=== PATIENT | male | born 1980 | race Caucasian/White ===

== ENCOUNTER 2020-06-24 12:45 | Emergency (ER) | payer BC, SELFPAY ==
[2020-06-24 12:50] VITALS: BP 165/90; PULSE 71; RESP 18; TEMP 37.6; O2SAT 99
--- NOTE | 2020-06-24 13:28 | ED.UPPEXIN ---
HPI - Extremity Injury (Upper) General Chief Complaint: Extremity Injury, Upper Stated Complaint: left thumb injury Time Seen by Provider: 06/24/20 13:12 Source: patient and RN notes reviewed Mode of arrival: ambulatory Limitations: no limitations History of Present Illness HPI narrative: Patient presents today complaining of an injury to his left thumb that was sustained yesterday. He hit with. And was worried because there is drainage coming from the underside of his fingernail. He is up-to-date on his tetanus vaccine. He does report some numbness and tingling to the tip of the finger. Currently rates pain 5/10 and has tried no [id number] interventions prior to arrival. He currently declines an x-ray. MD complaint: injury to: finger Related Data Home Medications Medication Instructions Recorded Confirmed bupropion HCl 100 mg PO DAILY 06/24/20 06/24/20 Allergies Allergy/AdvReac Type Severity Reaction Status Date / Time vancomycin Allergy Unknown Confusion Verified 06/24/20 13:12 Review of Systems Review of Systems: Narrative: CONSTITUTIONAL: Denies body aches, fever, chills, or sweats. EYES: Denies visual changes, redness, or discharge. ENT: Denies rhinorrhea, congestion, sore throat, or otalgia. CARDIOVASCULAR: Denies chest pain, palpitations, or edema. RESPIRATORY: Denies cough or dyspnea. GASTROINTESTINAL: Denies abdominal pain, nausea, vomiting, or diarrhea. GENITOURINARY: Denies dysuria or hematuria. SKIN: Denies rash, itching, or wounds. MUSCULOSKELETAL: Denies back pain, or myalgia. + Left thumb injury NEUROLOGIC: Denies headache, numbness, tingling, or weakness. PSYCH: Denies depression or anxiety. PMFSH Comments At time of signature, I have reviewed and agree with nursing past medical, surgical, social and family history unless otherwise noted. Please see nursing chart for further information. There is no relevant family history pertinent to the presenting complaint Exam Narrative: Exam Narrative: GENERAL: Well-appearing, well-nourished, and in no acute distress. HEAD: Normocephalic, atraumatic. EYES: EOMI. No redness or drainage. Conjunctivae normal. ENT: Mucous membranes pink and moist. NECK: Normal AROM. CHEST: No respiratory distress. EXTREMITIES: Left thumb: Patient has a draining subungual hematoma. There does not seem to be any blood collection underneath the nail at this time, but the nail does appear to be from the nailbed for approximately 60% of the nail. There is a contusion at the distal tip of the finger just adjacent to the nail. Some serous crusting at this area. Tenderness at the tip of the finger, but there does not seem to be bony tenderness of the distal phalanx. No signs of infection to include erythema or purulent discharge. Distal sensation is somewhat decreased. Capillary refill normal. Full range of motion intact. SKIN: Warm, dry, no rash. Capillary refill normal. Normal skin turgor. NEURO: No focal deficits. Alert and oriented x3. Gait steady. PSYCH: Normal affect. No signs of depression or anxiety. Course Vital Signs Vital signs: Vital Signs Temperature 99.6 F 06/24/20 12:50 Pulse Rate 71 06/24/20 12:50 Respiratory Rate 18 06/24/20 12:50 Blood Pressure 165/90 H 06/24/20 12:50 Pulse Oximetry 99 06/24/20 12:50 Temperature 99.6 F 06/24/20 12:50 Pulse Rate 71 06/24/20 12:50 Respiratory Rate 18 06/24/20 12:50 Blood Pressure 165/90 H 06/24/20 12:50 Pulse Oximetry 99 06/24/20 12:50 Reviewed. Pt has been instructed to follow up with his PCP regarding his elevated blood pressure today. MDM - Extremity Injury (Upper) Differential Diagnosis Differential diagnosis: Likely finger sprain and other (Finger contusion, finger fracture, subungual hematoma, cellulitis) Critical Care Time Critical Care Time Critical Care Time: No Discharge Plan Discharge Clinical Impression: Crushing injury of left thumb P
== END 2020-06-24 13:35 | disposition home or self-care (01) ==
PROVIDERS: Emergency Provider Nurse Practitioner
DX: S67.02XA Crushing injury of left thumb, initial encounter (principal); X58.XXXA Exposure to other specified factors, initial encounter; F32.9 Major depressive disorder, single episode, unspecified; F41.9 Anxiety disorder, unspecified
CPT/HCPCS: 99212; G0463

== ENCOUNTER 2020-07-03 14:53 | Emergency (ER) | payer BC, SELFPAY ==
[2020-07-03 14:58] VITALS: BP 155/92; PULSE 98; RESP 18; TEMP 37.1; O2SAT 98
--- NOTE | 2020-07-03 14:58 | ED.NAVMDI ---
HPI - Nausea/Vomiting/Diarrhea General Chief complaint: Nausea/Vomiting/Diarrhea Stated complaint: nausea/vomitting/diarrhea Time Seen by Provider: 07/03/20 15:03 Source: patient and RN notes reviewed Mode of arrival: ambulatory Limitations: no limitations History of Present Illness HPI Narrative: 39-year-old male presents with concern for 3-day history of nausea, vomiting, diarrhea, body aches, headache. Reports last episode of vomiting was this morning, has had 5 loose stools today. Denies taking any medications for his symptoms. Denies fever, chills, sweats, cough, shortness of breath, sore throat, abdominal pain. MD elicited complaint: nausea and vomiting Related Data Home Medications Medication Instructions Recorded Confirmed bupropion HCl 100 mg PO DAILY 06/24/20 07/03/20 Allergies Allergy/AdvReac Type Severity Reaction Status Date / Time vancomycin Allergy Unknown Confusion Verified 07/03/20 15:00 Review of Systems Review of Systems: Narrative: CONSTITUTIONAL: Denies malaise, chills, sweats, or fever. EYES: Denies visual changes, redness, or discharge. ENT: Denies rhinorrhea, congestion, sinus pain, otalgia or sore throat. CARDIOVASCULAR: Denies chest pain, palpitations, or edema. RESPIRATORY: Denies cough or dyspnea. GASTROINTESTINAL: Denies abdominal pain, bloody, or mucous stools.. Reports nausea, vomiting, diarrhea GENITOURINARY: Denies dysuria or hematuria. SKIN: Denies rash or itching. MUSCULOSKELETAL: Denies back pain, joint pain. Myalgia. NEUROLOGIC: Denies numbness, weakness, or headache. All systems reviewed & are unremarkable except as noted in HPI and below PMFSH Comments At time of signature, agree with nursing past medical, surgical, social and family history. There is no relevant family history pertinent to the presenting complaint Exam Narrative: Exam Narrative: GENERAL: Well-appearing, well-nourished, and in no acute distress. HEAD: Normocephalic. EYES: PERRLA, conjunctivae clear. NECK: Supple. No lymphadenopathy CHEST: Clear to auscultation. No respiratory distress. HEART: Regular rate and rhythm. ABDOMEN: Soft, nontender upon palpation, nondistended, normal active bowel sounds, no palpable or pulsatile masses, no guarding. SKIN: Warm, dry, no rash. NEURO: Alert and oriented x3. PSYCH: Normal mood and affect Course Course Emergency Course: Patient is aware of diagnosis, understands and agrees to treatment plan. Anticipatory guidance given. Patient agrees to follow-up as directed and is aware of reasons to seek care at the emergency department. Portions of this record may have been created with voice recognition software Vital Signs Vital signs: Vital Signs Temperature 98.8 F 07/03/20 14:58 Pulse Rate 98 07/03/20 14:58 Respiratory Rate 18 07/03/20 14:58 Blood Pressure 155/92 H 07/03/20 14:58 Pulse Oximetry 98 07/03/20 14:58 Temperature 98.8 F 07/03/20 14:58 Pulse Rate 98 07/03/20 14:58 Respiratory Rate 18 07/03/20 14:58 Blood Pressure 155/92 H 07/03/20 14:58 Pulse Oximetry 98 07/03/20 14:58 Reviewed. Pt has been instructed to follow up with his primary care provider within the next week regarding his elevated blood pressure today. MDM - Nausea/Vomiting/Diarrhea MDM Narrative Medical decision making narrative: No evidence of pancreatitis, AAA, cholecystitis, choledocholithiasis, cholangitis, mesenteric ischemia, small bowel obstruction, diverticulitis, colitis, appendicitis, or pelvic etiology such as ovarian/testicular torsion, TOA, or ectopic . Patient has no history of peptic ulcer, H. pylori, chronic aspirin NSAID or corticosteroid use, chronic alcohol use, no history of inflammatory bowel disease, no history of active abdominal infection or malignancy. Patient has no history of hernia or intra-abdominal surgeries, patient denies absence of flatus, constipation, melena, hematemesis. Patient denies post-prandial pain. No pain-out of
== END 2020-07-03 15:20 | disposition home or self-care (01) ==
PROVIDERS: Emergency Provider Nurse Practitioner
DX: R11.2 Nausea with vomiting, unspecified (principal); R19.7 Diarrhea, unspecified; Z20.828 Contact with and (suspected) exposure to other viral communicable diseases; F41.9 Anxiety disorder, unspecified; F32.9 Major depressive disorder, single episode, unspecified
CPT/HCPCS: 99213; G0463

== ENCOUNTER 2020-07-05 06:50 | Outpatient (NON) | payer BC, SELFPAY ==
[2020-07-06 13:35] LABS: SARS-CoV-2 RNA PCR Negative
== END 2020-07-05 06:51 ==
PROVIDERS: Visit Provider Nurse Practitioner
DX: Z20.828 Contact with and (suspected) exposure to other viral communicable diseases (principal); R11.2 Nausea with vomiting, unspecified
CPT/HCPCS: 87635; C9803; U0003

== ENCOUNTER 2020-10-12 09:33 | Outpatient (CLI) | payer BC, SELFPAY ==
--- NOTE | ~2020-10-12 | XR_ITS ---
XR ribs RT 2V DATE: 10/12/2020 09:56 INDICATION: Right lower rib pain; no trauma. TECHNIQUE: Multiple views COMPARISON: None FINDINGS: No rib fracture or bone destruction is evident. No right pulmonary infiltrate or consolidat ion or pleural effusion or pneumothorax. IMPRESSION: Negative Reviewed, dictated and finalized at location A. ACE CHARGER IMPRESSION: Negative
== END 2020-10-12 09:34 | disposition home or self-care (01) ==
LOC: CHSIMG 09:35
PROVIDERS: PCP Physician Assistant; Visit Provider Physician Assistant
DX: R07.81 Pleurodynia (principal)
CPT/HCPCS: 71100

== ENCOUNTER 2020-12-21 11:24 | Emergency (ER) | payer BC, SELFPAY ==
[2020-12-21 11:30] VITALS: BP 153/81; PULSE 80; RESP 20; TEMP 37.3; O2SAT 98
--- NOTE | 2020-12-21 11:32 | ED.URI ---
HPI - URI/Sore Throat General Chief Complaint: Upper Respiratory Infection Stated Complaint: Coughing, difficulty breathing,drainage Time Seen by Provider: 12/21/20 11:37 Source: patient and RN notes reviewed Mode of arrival: ambulatory Limitations: no limitations History of Present Illness HPI Narrative: 40-year-old male presents concern for 2-week history of coughing, difficulty taking a deep breath, productive cough. Reports symptoms began 2 weeks ago and have been worsening. He denies nasal congestion, rhinorrhea, body aches, chills, sweats, fever. Denies known sick contacts. Reports has been taking Mucinex with no relief. MD elicited complaint: cough Related Data Home Medications Medication Instructions Recorded Confirmed bupropion HCl 100 mg PO DAILY 06/24/20 12/21/20 Allergies Allergy/AdvReac Type Severity Reaction Status Date / Time vancomycin Allergy Unknown Confusion Verified 07/03/20 15:00 Review of Systems Review of Systems: Narrative: CONSTITUTIONAL: Denies malaise, chills, sweats, or fever. EYES: Denies visual changes, redness, or discharge. ENT: Denies rhinorrhea, congestion, sinus pain, otalgia and sore throat. CARDIOVASCULAR: Denies chest pain, palpitations, or edema. RESPIRATORY: Reports cough and dyspnea. GASTROINTESTINAL: Denies abdominal pain, nausea, vomiting, diarrhea SKIN: Denies rash or itching. MUSCULOSKELETAL: Denies myalgia. NEUROLOGIC: Denies headache. All systems reviewed & are unremarkable except as noted in HPI and below PMFSH Comments At time of signature, agree with nursing past medical, surgical, social and family history. There is no relevant family history pertinent to the presenting complaint Exam Narrative: Exam Narrative: GENERAL: Well-appearing, well-nourished, and in no acute distress. HEAD: Normocephalic EYES: PERRLA, conjunctivae clear ENT: Nares clear, turbinates erythematous, clear discharge. Mucous membranes moist. TM pearly huang with dull light reflex bilaterally; no tragal tenderness. Oropharynx not erythematous without lesions. Tonsils not enlarged and without exudate, no drooling, no trismus, uvula midline. Slightly hoarse voice NECK: Supple. No lymphadenopathy CHEST: Clear to auscultation, breath sounds equal. No wheezing, rhonchi, rales, or stridor. No respiratory distress, speaks in full sentences. Cough noted HEART: Regular rate and rhythm. No murmur heard. SKIN: Warm, dry, no rash. NEURO: Alert and oriented x3. PSYCH: Normal mood and affect Course Course Emergency Course: Patient is aware of diagnosis, understands and agrees to treatment plan. Anticipatory guidance given. Patient agrees to follow-up as directed and is aware of reasons to seek care at the emergency department. Portions of this record may have been created with voice recognition software Vital Signs Vital signs: Vital Signs Temperature 99.2 F 12/21/20 11:30 Pulse Rate 80 12/21/20 11:30 Respiratory Rate 20 12/21/20 11:30 Blood Pressure 153/81 H 12/21/20 11:30 Pulse Oximetry 98 12/21/20 11:30 Temperature 99.2 F 12/21/20 11:30 Pulse Rate 80 12/21/20 11:30 Respiratory Rate 20 12/21/20 11:30 Blood Pressure 153/81 H 12/21/20 11:30 Pulse Oximetry 98 12/21/20 11:30 Reviewed. MDM - URI/Sore Throat MDM Narrative Medical decision making narrative: Differential diagnosis considered: Perdue virus, strep pharyngitis, allergic rhinitis, upper respiratory tract infection, sinusitis, rhinosinusitis, nasopharyngitis. viral pharyngitis, otitis media, otitis externa, pneumonia, bronchitis, viral cough syndrome, viral syndrome, and influenza. Exam findings show no acute concerns or changes; patient is non-toxic appearing and is in no distress. Patient is appropriate for outpatient treatment and follow-up. Critical Care Time Critical Care Time Critical Care Time: No Discharge Plan Discharge Clinical Impression: Bronchitis Patient Disposition: Home, Self-Care
== END 2020-12-21 11:50 | disposition home or self-care (01) ==
PROVIDERS: Emergency Provider Nurse Practitioner
DX: J40 Bronchitis, not specified as acute or chronic (principal); F41.9 Anxiety disorder, unspecified; F32.9 Major depressive disorder, single episode, unspecified
CPT/HCPCS: 99213; G0463

== ENCOUNTER 2021-08-08 23:24 | Inpatient (IN) | payer BC, SELFPAY ==
--- NOTE | ~2021-08-08 | XR_ITS ---
EXAMINATION: XR chest 2V DATE: 08/11/2021 11:30 INDICATION: Shortness of breath and wheezing TECHNIQUE: frontal and lateral views of the chest were obtained. COMPARISON: Chest radiograph dated 08/10/2021 FINDINGS: Perihilar bronchial wall thickening most evident on the lateral projection and in the right infrahila r region on the frontal projection. No focal consolidation, pleural effusion or pneumothorax. The car diomediastinal silhouette is normal. Mild thoracic spondylosis. IMPRESSION: 1. Perihilar bronchial wall thickening without focal airspace opacities which could be seen with bron chitis or reactive airway disease/asthma. Reviewed, dictated and finalized at location A. RITY SYSTEMS TECHNICIAN IMPRESSION: 1. Perihilar bronchial wall thickening without focal airspace opacities which c ould be seen with bronchitis or reactive airway disease/asthma.
--- NOTE | ~2021-08-08 | XR_ITS ---
EXAMINATION: XR chest 1V portable INDICATION: Vomiting, overdose TECHNIQUE: Portable AP chest at 0004 hours COMPARISON: 10/12/2020 FINDINGS: Diffuse opacities are present throughout all lung zones. There is no pleural effusion or pn eumothorax. The cardiomediastinal silhouette is normal. The visualized osseous structures are unremar kable. IMPRESSION: 1. Diffuse lung disease, consistent with pulmonary edema versus pneumonia. Reviewed, dictated and finalized at location A. FOLIO STRATEGIST
--- NOTE | ~2021-08-08 | XR_ITS ---
EXAMINATION: XR chest 2V EXAM DATE: 08/10/2021 11:57 INDICATION: Possible aspiration . TECHNIQUE: Frontal and lateral projections of the chest obtained and reviewed. Comparison is made to prior examination from 08/08/2021. FINDINGS: The cardiomediastinal silhouette is prominent but magnified on this AP technique. No conflu ent consolidation, pneumothorax or pleural effusion suspected. There are no osseous abnormalities vinny ntified. IMPRESSION: No acute cardiopulmonary findings. Reviewed, dictated and finalized at location A. DING SURVEYOR
--- NOTE | ~2021-08-08 | CT_ITS ---
EXAMINATION: CT brain wo con INDICATION: Drug overdose, transient alteration of awareness COMPARISON: 03/30/2004 TECHNIQUE: Standard unenhanced head CT. The dose-length product (DLP) was 681.00 mGy-cm. The mA was a djusted according to patient size. Iterative reconstruction technique was employed. FINDINGS: Motion artifact degrades the examination. There is no intracranial hemorrhage, acute infarc tion, or abnormal mass lesion. The ventricles are normal. There is no abnormal mass effect or midline shift. The huang-white matter differentiation is normal. The basal cisterns are patent. The orbits ar e normal. There is mild mucosal thickening of the paranasal sinuses. IMPRESSION: 1. Grossly no acute intracranial abnormality. Examination degraded by motion artifact. Reviewed, dictated and finalized at location A. ING MANAGER IMPRESSION: 1. Grossly no acute intracranial abnormality. Examination degraded by motion ar tifact.
[2021-08-08] MEDS: SODIUM CHLORIDE 0.9% IV 1,000 ML 999 ML IV CONT (23:25)
[2021-08-08 23:26] VITALS: O2SAT 98
--- NOTE | 2021-08-08 23:26 | PC.NURSE ---
Per Md Melissa, patient has a positive gag reflex.
[2021-08-08] MEDS: NALOXONE HCL 0.4 MG/ML VIAL 4 MG IV PUSH (23:29)
[2021-08-08 23:30] VITALS: BP 141/92; BP 143/111; PULSE 124; PULSE 129; RESP 31; RESP 35; TEMP 36.1; O2SAT 95; O2SAT 98
[2021-08-08] MEDS: NALOXONE HCL INJ 2 MG/2 ML AMP 4 MG IV PUSH (23:33)
[2021-08-08 23:41] VITALS: PULSE 122; RESP 36; O2SAT 94
--- NOTE | 2021-08-08 23:50 | PC.NURSE ---
Patient nonverbal at this time. pt unable to answer questions concerning initial assessment. patient information obtained from patient [place] drivers license. patient's mother contact information - [phone].
[2021-08-08 23:52] VITALS: PULSE 117; RESP 37; O2SAT 97
[2021-08-08 23:58] VITALS: BP 132/84; PULSE 114; RESP 39; O2SAT 97
[2021-08-09] VITALS (19 sets, daily range): BP systolic 123–154; BP diastolic 68–127; PULSE 87–139; RESP 12–30; TEMP 35.9–36.3; O2SAT 93–100; BMI 44.9
[2021-08-09 00:05] LABS: Basophils Absolute Auto 0.07 K/mm3 (0.00-0.10); Basophils Percent Auto 0.7 % (0.0-1.0); Eosinophils Absolute Auto 0.16 K/mm3 (0.02-0.50); Eosinophils Percent Auto 1.6 % (1.0-6.0); Hematocrit 42.3 % (40.0-54.0); Hemoglobin 13.2 g/dL (14.0-18.0); Immature Granulocyte Absolute 0.17 K/mm3 (0.00-0.00); Immature Granulocyte Percent A 1.7 % (0.0-0.0); Lymphocytes Absolute Auto 2.79 K/mm3 (1.10-4.50); Lymphocytes Percent Auto 28.3 % (18.0-42.0); Mean Corpuscular HGB Conc 31.2 g/dL (32.0-36.0); Mean Corpuscular Hemoglobin 29.9 pg (27.0-31.0); Mean Corpuscular Volume 95.7 fL (78.0-102.0); Mean Platelet Volume 10.9 fl (8.7-11.0); Monocytes Percent Auto 7.1 % (2.0-11.0); Neutrophils Percent Auto 60.6 % (50.0-70.0); Nucleated Red Blood Cells Absolute Auto 0.04 K/mm3 (0.00-0.00); Nucleated Red Blood Cells Perc 0.4 % (0-0.0); Platelet Count Result 282 K/mm3 (150-420); Red Blood Count 4.42 M/mm3 (4.70-6.10); Red Cell Distribution Width 13.8 % (11.6-14.4); White Blood Count 9.9 K/mm3 (4.8-10.8)
--- NOTE | 2021-08-09 00:23 | ED.OVERDOSE ---
HPI - Overdose General Chief Complaint: Overdose Stated Complaint: OVERDOSE Source: EMS and RN notes reviewed Mode of arrival: EMS Limitations: intoxication History of Present Illness HPI Narrative: patient was found down at home. The report was that he had heroin overdose. On arrival he is being bagged by BVM he had vomited twice on the way in. He received total of 12 mg of Narcan 2 mg through an IO, the rest was intranasal. The patient is somewhat responsive after doses of Narcan. MD complaint: other (unknown) Onset (ago): unknown Intent: unknown Treatments Prior to Arrival: oxygen, narcan and IV fluids Related Data Home Medications Medication Instructions Recorded Confirmed bupropion HCl 100 mg PO DAILY 06/24/20 08/09/21 escitalopram oxalate 5 mg PO DAILY 08/09/21 08/09/21 Allergies Allergy/AdvReac Type Severity Reaction Status Date / Time vancomycin Allergy Unknown Confusion Verified 08/09/21 01:26 Review of Systems Review of Systems: ROS unobtainable: Yes unobtainable due to medical condition PMFSH Comments Unable to obtain due to medical condition Exam Const: General: intoxicated appearing and patient obtunded Nutritional Appearance: obese centrally obese Limitations: altered mental status HENMT: Head: normal to inspection Ears: external ears normal Face and sinus: normal facial exam Mouth: Yes moist mucous membranes Throat: uvula midline Eyes: Periorbital: periorbital findings normal Eyelids: eyelids normal Conjunctivae: conjunctivae normal Sclera: sclerae normal Pupils: Dilated pupils bilaterally Neck: Neck: normal visual inspection Resp: Effort & Inspection: labored ( snoring respirations) and tachypneic Auscultation: rhonchi throughout Cardio: Rate: tachycardic Rhythm: regular rhythm GI: Inspection: non-distended GI Palp: No Rigid due to palpation Auscultation: normal bowel sounds Skin: General skin exam: normal color Rashes: no rashes Neuro: General: Unable to assess gait Cranial nerves: Yes Normal gag reflex present Doll's-Eye Reflex: Absent Extrem: General: normal to inspection and no clubbing, cyanosis or edema Psych: Other: unable to assess Course Course Emergency Course: Patient received another 8 mg of Narcan. With each does he seem to arouse little more. It did not completely bring it out. He is oxygenating well with BVM and 100% oxygen. I tried to take him off the BVM and put him on nasal cannula 6L he dropped to 85%. And then was put back on non-rebreather at 10 L. he still has some difficulty with low O2 sat and was put at 15 L non-rebreather. This kept his O2 stat in the high 90s. After his blood gas I decided to change him to high-flow nasal cannula. He continued stabilized. He did began to become more responsive following commands. He understands he is in the hospital and that he will stay here at this time. Vital Signs Vital signs: Vital Signs Pulse Oximetry 98 08/08/21 23:26 Temperature 36.1 C L 08/08/21 23:30 Pulse Rate 117 H 08/09/21 07:03 Respiratory Rate 15 08/09/21 07:03 Blood Pressure 146/127 H 08/09/21 07:03 Pulse Oximetry 96 08/09/21 07:03 MDM - Overdose Lab Data Result diagrams: 08/09/21 00:01 08/09/21 00:01 Labs: Lab Results 08/08/21 08/08/21 08/08/21 Range/Units 00:28 00:28 00:28 WBC (4.8-10.8) K/mm3 RBC (4.70-6.10) M/mm3 Hgb (14.0-18.0) g/dL Hct (40.0-54.0) % MCV (78.0-102.0) fL MCH (27.0-31.0) pg MCHC (32.0-36.0) g/dL RDW (11.6-14.4) % Plt Count (150-420) K/mm3 MPV (8.7-11.0) fl Immature Gran % (Auto) (0.0-0.0) % Neut % (Auto) (50.0-70.0) % Lymph % (Auto) (18.0-42.0) % Terry % (Auto) (2.0-11.0) % Eos % (Auto) (1.0-6.0) % Baso % (Auto) (0.0-1.0) % Lymph # (Auto) (1.10-4.50) K/mm3 Terry # (Auto) (0.10-0.90) K/mm3 Eos # (Auto) (0.02-0.50) K/mm3 Baso # (Auto) (0.00-0
[2021-08-09 00:28] LABS: Base Excess ABG -3.7 mmol/L (0-2); HCO3 ABG 23.9 mmol/L (23-29); Oxygen Content ABG 18.5 %vol (16.0-22.0); Oxygen Saturation ABG 96.6 % (95-97); PCO2 ABG 53.9 mmHg (35-45); PO2 ABG 96.7 mmHg (80-90); Total Hemoglobin 13.6 g/dL (12.0-18.0); pH ABG 7.27 (7.35-7.45)
[2021-08-09 00:28] LABS: Lactic Acid Reflex 4.2 mmol/L (0.4-2.0)
[2021-08-09 00:30] LABS: Modified Allen's Test Pass; Site Drawn RIGHT RADIAL
[2021-08-09 00:31] LABS: Device NON-REBREATHER MASK
[2021-08-09] MEDS: SODIUM CHLORIDE 0.9% IV 1,000 ML 100 ML IV CONT (00:34)
[2021-08-09 00:35] LABS: Alanine Aminotransferase 45 U/L (16-63); Albumin Level 3.4 g/dL (3.4-5.0); Alkaline Phosphatase 68 U/L (46-116); Ammonia 32 umol/L (11-32); Anion Gap 13 mmol/L (8-16); Aspartate Amino Transferase 27 U/L (15-37); Bilirubin,Total 0.3 mg/dL (0.00-1.00); Blood Urea Nitrogen 20 mg/dL (7-18); Carbon Dioxide 25 mmol/L (21-32); Chloride 104 mmol/L (98-108); Estimated Glomerular Filt Rate 50; Ethanol 8 mg/dL (0-6); Glucose 206 mg/dL (70-99); Magnesium 1.6 mg/dL (1.8-2.4); Osmolality Calculated 302 mOsm/kg (285-295); Potassium 3.6 mmol/L (3.5-5.1); Sodium 142 mmol/L (136-145)
[2021-08-09 00:36] LABS: Appearance Urine Clear (Clear); Bilirubin Urine Negative (Negative); Color Urine Light Yellow (Yellow); Glucose Urine UA 1+ (Negative); Ketones Urine Negative (Negative); Leukocyte Esterase Ur Negative LEU/UL (Negative); Nitrate Urine Negative (Negative); Protein Urine 1+ (Negative); Specific Grav Ur >= 1.030 (1.010-1.020); Urobilinogen Urine 0.2 mg/dL (0.2-1.0)
[2021-08-09 00:36] LABS: Salicylate < 0.2 mg/dL (2.8-20.0)
[2021-08-09 00:37] LABS: Acetaminophen < 2 ug/mL (10-30)
[2021-08-09 00:38] LABS: Amphetamine Screen Urine Positive (Negative); Barbiturate Screen Urine Negative (Negative); Benzodiazepines Screen Urine Positive (Negative); Cannabinoid Screen Urine Negative (Negative); Cocaine Screen Urine Negative (Negative); Methadone Screen Urine Negative (Negative); Opiate Screen Urine Negative (Negative); Phencyclidine Screen Urine Negative (Negative)
[2021-08-09 00:41] LABS: Add Urine Microscopic? YES; Bacteria Urine Trace /hpf; Blood Urine Trace-Intact (Negative); RBC Urine 0-2 /hpf (0-2); WBC Urine 0-3 /hpf (0-3)
[2021-08-09 00:50] LABS: SARS-CoV-2 Ag Negative (Negative)
[2021-08-09 01:12] LABS: NT Pro B Type Natriuretic Pept 17 pg/mL (0-125)
--- NOTE | 2021-08-09 01:50 | PC.NURSE ---
Per MD Melissa, monitor pt's pulse oxygenation level while on non-rebreather mask at 10L oxygen. patient can be placed on high flow nasal canula if patient's oxygenation level is 92% or above.
--- NOTE | 2021-08-09 02:46 | PC.NURSE ---
oropharynx suction performed, scant amount of pink colored fluid removed, pt opened eyed, non-verbal, 93% on Non-rebreather mask at 10L oxygen.
[2021-08-09 03:01] LABS: Reflex Lactic Acid Yes or No Add Lactic
[2021-08-09 03:35] LABS: Lactic Acid 1.3 mmol/L (0.4-2.0)
--- NOTE | 2021-08-09 04:05 | PC.NURSE ---
pt pulling at high flow nasal canula. pt does not appear to respond to verbal directions from this staff member. patient non-verbal at this time. patient grunting when this staff member moves patient's hands away from nasal canula.
--- NOTE | 2021-08-09 04:58 | PC.NURSE ---
patient more alert. patient following verbal directions from this staff member. patient responds to name. patient did not know where he was. patient denied taking anything drugs when asked what he took. patient able to self turn when staffed cleaned patient and changed linen. this staff member instructed patient not to remove nasal canula, IV tubing and teletypesetter monitor, patient nodded yes.
--- NOTE | 2021-08-09 06:29 | PC.NURSE ---
patient to be admitted for 23 hour observation into room 208.
[2021-08-09 06:32] LABS: Base Excess ABG -2.5 mmol/L (0-2); Oxygen Content ABG 20.4 %vol (16.0-22.0); Oxygen Saturation ABG 97.3 % (95-97); Oxyhemoglobin 96.8 % (94-100); PCO2 ABG 68.2 mmHg (35-45); Total Hemoglobin 14.9 g/dL (12.0-18.0); pH ABG 7.22 (7.35-7.45)
[2021-08-09 06:33] LABS: Device HIGH FLOW NASAL CANN; Modified Allen's Test Pass; Site Drawn LEFT RADIAL
[2021-08-09] MEDS: DEXTROSE 5%/0.9% SOD CHL 1,000 ML 150 ML IV CONT (06:40)
--- NOTE | 2021-08-09 06:43 | ECG_ITS ---
Measurements Intervals [place] Rate: 119 P: 39 VA: 135 QRS: 7 QRSD: 85 T: 21 QT: 303 QTc: 426 Interpretive Statements SINUS TACHYCARDIA DELAYED PRECORDIAL R/S TRANSITION BASELINE ARTIFACT- AVR, V1-V2, V6 ABNORMAL ECG Electronically Signed On 08-09-2021 17:06:52 RUM PROCESSING OPERATOR by Torito Baker D.O.
[2021-08-09] MEDS: NALOXONE HCL 0.4 MG/ML VIAL IV PUSH ×3 (09:03→12:42)
[2021-08-09] MEDS: OXYMETAZOLINE HCL 0.05% NAS 15 ML BTL (*BKC) 5 SPRAY NASAL (10:53)
--- NOTE | 2021-08-09 11:11 | PC.NURSE ---
Patient admitted to room 208 for observation from ED.
--- NOTE | 2021-08-09 11:45 | PM.IMHP ---
H&P: HPI History of Present Illness Date/Time: 08/09/21 11:45 John Constantino is a 40 year young male who is being admitted into Observation for Drug Overdose. Toxicology shows low amount of EtOH, Amphetamines, and Benzodiazepines. He does arouse after given Narcan 2 times after being admitted to the floor and a Narcan drip was started. RR has improved to about 14 bpm. History of what transpired was provided by family members that were not on scene with the patient and by person on the scene with the patient talking to family members. Their report was that the Pt was snorting substance and that a needle was found near him. Currently Pt is sleeping often but arouses much better post Narcan drip. Only past medical history is Depression for which Pt takes Lexapro but does not take this regularly. Chief Complaint: Overdose Review of Systems Review of Systems: ROS unobtainable: Yes unobtainable due to medical condition PMFSH Past Medical History Medical History Depression Drug overdose Social History Social History Smoking status: Never smoker Second hand tobacco smoke exposure: No Alcohol intake: current Substance use: current Substance use type: marijuana, amphetamines, sedatives and methamphetamine Spiritual care concerns: No Meds Home Medications and Allergies Home Medications Medication Instructions Recorded Confirmed Type bupropion HCl 100 mg PO DAILY 06/24/20 08/09/21 History escitalopram oxalate 5 mg PO DAILY 08/09/21 08/09/21 History Allergies Allergy/AdvReac Type Severity Reaction Status Date / Time vancomycin Allergy Unknown Confusion Verified 08/09/21 01:26 Vital Signs Vital Signs - 24 hr 08/08/21 23:26 08/08/21 23:30 08/08/21 23:41 Temperature 97 F L Pulse Rate 129 H 122 H Respiratory Rate 31 H 36 H Blood Pressure 143/111 H Pulse Oximetry 98 95 94 08/08/21 23:52 08/08/21 23:58 08/09/21 00:10 Temperature Pulse Rate 117 H 114 H 120 H Respiratory Rate 37 H 39 H 30 H Blood Pressure 132/84 Pulse Oximetry 97 97 98 08/09/21 01:48 08/09/21 01:50 08/09/21 02:51 Temperature Pulse Rate Respiratory Rate Blood Pressure Pulse Oximetry 97 98 94 08/09/21 03:09 08/09/21 04:12 08/09/21 04:20 Temperature Pulse Rate 107 H Respiratory Rate 25 H 15 Blood Pressure 154/68 H Pulse Oximetry 94 93 93 08/09/21 07:03 08/09/21 08:00 08/09/21 09:00 Temperature Pulse Rate 117 H 131 H 139 H Respiratory Rate 15 20 Blood Pressure 146/127 H Pulse Oximetry 96 93 08/09/21 10:15 Temperature Pulse Rate Respiratory Rate Blood Pressure Pulse Oximetry 99 Exam Const: General: no acute distress, well developed, confusion and lethargic; No combative Nutritional Appearance: obese morbidly obese Orientation/consciousness: oriented to person HENMT: Head: signs of trauma General nose exam: Normal external nose present and Epistaxis present (gave Afrin and his bleeding stopped. ) on the right Face and sinus: normal facial exam, sinuses nontender, face symmetric, no abrasions, no lacerations and no sinus tenderness Resp: Effort & Inspection: no cough, not labored, no retractions and other (Long expirtory phase) Auscultation: rhonchi Cardio: Rate: tachycardic (was 130s now 100-110) Rhythm: regular rhythm Heart sounds: S1 normal heart sound present and S2 normal heart sound present GI: GI Palp: Yes Soft to palpation, No Tenderness to palpation present (GI) and No Guarding due to palpation present (GI) Auscultation: Hypoactive bowel sounds present Urinary Catheter: Urinary Catheter: patent and draining and urine dark (jonel) Skin: General skin exam: normal color and other (moist) Neuro: General: oriented to person and oriented to place Cranial nerves: Yes CN's II-XII intact bilaterally (grossly intact) Cognition (Neuro): abnormal c
[2021-08-09 15:30] LABS: Alveolar/Arterial O2 Gradient 260.1 mmHg; Base Excess ABG -2.1 mmol/L (0-2); Fractional Inspired Oxygen 77 %; HCO3 ABG 24.9 mmol/L (23-29); Oxygen Content ABG 19.6 %vol (16.0-22.0); Oxygen Saturation ABG 99.1 % (95-97); Oxyhemoglobin 98.3 % (94-100); PCO2 ABG 51.4 mmHg (35-45); PO2 ABG 234.6 mmHg (80-90); PO2 FiO2 Ratio Arterial Blood 3.05 %; Total Hemoglobin 13.8 g/dL (12.0-18.0)
[2021-08-09 15:32] LABS: Device OTHER DEVICE; Modified Allen's Test Pass; Site Drawn LEFT RADIAL
--- NOTE | 2021-08-09 19:00 | PC.NURSE ---
Completed bedside change of shift report. Patient is sleeping comfortably in bed. He is easy to awake. Patient stated that he was not in pain, and did not need anything at this time.
[2021-08-09 20:11] LABS: Base Excess ABG -0.4 mmol/L (0-2); HCO3 ABG 27.2 mmol/L (23-29); Oxygen Content ABG 18.6 %vol (16.0-22.0); Oxygen Saturation ABG 97.2 % (95-97); Oxyhemoglobin 96.3 % (94-100); PCO2 ABG 57.2 mmHg (35-45); PO2 ABG 92.6 mmHg (80-90); Total Hemoglobin 13.7 g/dL (12.0-18.0)
[2021-08-09 20:13] LABS: Device NASAL CANNULA; Modified Allen's Test Pass; Site Drawn LEFT RADIAL
[2021-08-10] VITALS (10 sets, daily range): BP systolic 120–143; BP diastolic 77–103; PULSE 83–118; RESP 6–24; TEMP 36.1–37.2; O2SAT 89–98
[2021-08-10 05:42] LABS: Hematocrit 42.1 % (40.0-54.0); Hemoglobin 13.1 g/dL (14.0-18.0); Mean Corpuscular HGB Conc 31.1 g/dL (32.0-36.0); Mean Corpuscular Hemoglobin 30.3 pg (27.0-31.0); Mean Corpuscular Volume 97.2 fL (78.0-102.0); Mean Platelet Volume 10.9 fl (8.7-11.0); Platelet Count Result 234 K/mm3 (150-420); Red Blood Count 4.33 M/mm3 (4.70-6.10); Red Cell Distribution Width 14.4 % (11.6-14.4); White Blood Count 9.4 K/mm3 (4.8-10.8)
[2021-08-10 05:51] LABS: Anion Gap 10 mmol/L (8-16); Blood Urea Nitrogen 32 mg/dL (7-18); Calcium 8.6 mg/dL (8.5-10.1); Carbon Dioxide 26 mmol/L (21-32); Chloride 101 mmol/L (98-108); Estimated CRCL calculation 64 ml/min; Estimated Glomerular Filt Rate 39; Glucose 112 mg/dL (70-99); Osmolality Calculated 291 mOsm/kg (285-295); Potassium 4.5 mmol/L (3.5-5.1); Sodium 137 mmol/L (136-145)
[2021-08-10] MEDS: NALOXONE HCL 0.4 MG/ML VIAL IV PUSH ×2 (08:55→11:27)
--- NOTE | 2021-08-10 13:00 | PC.NURSE ---
Patient discharged from observation to inpatient status
[2021-08-10] MEDS: IPRATROPIUM 0.5 MG/ALBUTEROL SULFATE 2.5 MG AMPUL.NEB 3 ML INHALATION ×2 (14:03→22:37)
--- NOTE | 2021-08-10 15:34 | PM.IMPN ---
Progress Note: A&P Assessment and Plan (1) Drug overdose: Qualifiers: Encounter type: initial encounter Injury intent: undetermined intent Qualified Code(s): T50.904A - Poisoning by unspecified drugs, medicaments and biological substances, undetermined, initial encounter <CHINO Massey - Last Filed: 08/10/21 17:45> Code(s): T50.901A - Poisoning by unspecified drugs, medicaments and biological substances, accidental (unintentional), initial encounter <CHINO Massey - Last Filed: 08/10/21 17:45> Status: Acute <CHINO Massey - Last Filed: 08/10/21 17:45> Assessment and Plan: 2 IV doses of Narcan, Pt responded well and this lasted about 1.75 hours before the 2nd dose was given of 0.4 mg, started Narcan drip and Pt doing well. Considering infusing one 250 ml Narcan drip at 43 ml/hr (5mg/kg/hr) then monitor the Pt with either restart of Drip of use of PRN Narcan IV. Unsure what Pt ingested (see toxicology) it was reported that Pt was doing Meth (Pt admitted to this), Benzos (Pt admited to this), snorting some substance, and an IV needle was reported found near him. 08/10/2021 Pt remains lethargic, he required BiPAP currently settings are 15/6 with 5 L/min bleed in O2 with SpO2 mid to upper 90s, ABG at 1615 hours shows: pH 7.22, pCO2 68.7, pO2 86.4, HCO3 27.5, O2 Sat 96.5, Pt is back on the Narcan drip and to titrate for RR > 16, Vte is around 350 to 450 with a rate of 20+/- occasionally there is higher tidal volumes, set RR delivery is 24 pbm on the BiPAP, will obtain ABG in the AM. I informed family about the Pt's status and expected progression, interventions and short term goals and fpc concerns such as hypoxic brain injury. <CHINO Massey - Last Filed: 08/10/21 17:45> (2) Depression: Code(s): F32.A - Depression, unspecified <CHINO Massey - Last Filed: 08/10/21 17:45> Status: Acute <CHINO Massey - Last Filed: 08/10/21 17:45> Assessment and Plan: Will hold his Lexapro <CHINO Massey - Last Filed: 08/10/21 17:45> Subjective Date/time seen: 08/10/21 15:35 Pt is still lethargic and it takes a while for him to respond and stay awake. Pt was placed on BiPAP as his RR rate was slow. He is tolerating the BiPAP well. He is a bit tachy at times otherwise VVS. He has no complaints of CP, SOB, breathing difficulties, or any other pain or issues other than memory loss. Family members updated. Cande Rivas his 16 year old daughter was updated and informed of her fathers status, expectations, interventions, short term goals and longer term concerns. <CHINO Massey - Last Filed: 08/10/21 17:45> Review of Systems Review of Systems: ROS unobtainable: Yes unobtainable due to medical condition <CHINO Massey - Last Filed: 08/10/21 17:45> Exam Const: General: cooperative, comfortable, well developed, alert, awake (some times, sleeps most of the time), confusion and lethargic <CHINO Massey - Last Filed: 08/10/21 17:45> Nutritional Appearance: obese morbidly obese <CHINO Massey - Last Filed: 08/10/21 17:45> Resp: Effort & Inspection: abnormal respiratory pattern (long expiratory phase, RR ~ 8 while sleeping, snoring, apneic episodes ) and Actively coughing productive (yellow frothy) <CHINO Massey - Last Filed: 08/10/21 17:45> Auscultation: rales (bases) <CHINO Massey - Last Filed: 08/10/21 17:45> Cardio: Rate: regular rate and tachycardic (intermittent) <CHINO Massey - Last Filed: 08/10/21 17:45> Heart sounds: S1 normal heart sound present and S2 normal heart sound present <CHINO Massey - Last Filed: 08/10/21 17:45> GI: GI Palp: Yes Soft to palpation, No Tenderness to palpation present (GI) and No Guarding due to palpation present (GI) <CHINO Massey - Last Filed: 08/10/21 17:45> Auscultation: Hypoactive b
[2021-08-10 16:32] LABS: Base Excess ABG -1.7 mmol/L (0-2); HCO3 ABG 27.5 mmol/L (23-29); Oxygen Content ABG 17.9 %vol (16.0-22.0); Oxygen Saturation ABG 96.5 % (95-97); Oxyhemoglobin 95.4 % (94-100); PCO2 ABG 68.7 mmHg (35-45); PO2 ABG 86.4 mmHg (80-90); Total Hemoglobin 13.3 g/dL (12.0-18.0); pH ABG 7.22 (7.35-7.45)
[2021-08-10 16:33] LABS: Device HIGH FLOW THERAPY; Modified Allen's Test Pass; Site Drawn LEFT RADIAL
--- NOTE | 2021-08-10 19:00 | PC.NURSE ---
Completed bedside change of shift report. Patient was sleeping, but arousable with name and touch on arm. Patient is using bi-pap, and has Narcan running at 60 mL/hr. Patient appears to be resting comfortably, with no signs of pain or discomfort.
[2021-08-10] MEDS: ACETAMINOPHEN 325 MG TABLET 650 MG PO (21:33)
[2021-08-11] VITALS (22 sets, daily range): BP systolic 131–142; BP diastolic 70–86; PULSE 51–96; RESP 14–24; TEMP 35.9–37.7; O2SAT 90–100
[2021-08-11] MEDS: IPRATROPIUM 0.5 MG/ALBUTEROL SULFATE 2.5 MG AMPUL.NEB 3 ML INHALATION ×3 (05:46→22:37)
[2021-08-11 06:00] LABS: Base Excess ABG 1.5 mmol/L (0-2); Oxygen Content ABG 26.1 %vol (16.0-22.0); Oxygen Saturation ABG 95.5 % (95-97); Oxyhemoglobin 94.5 % (94-100); PCO2 ABG 49.9 mmHg (35-45); PO2 ABG 73.5 mmHg (80-90); Total Hemoglobin 19.7 g/dL (12.0-18.0); pH ABG 7.37 (7.35-7.45)
[2021-08-11 06:04] LABS: Hematocrit 34.2 % (40.0-54.0); Hemoglobin 11.1 g/dL (14.0-18.0); Mean Corpuscular HGB Conc 32.5 g/dL (32.0-36.0); Mean Corpuscular Hemoglobin 30.7 pg (27.0-31.0); Mean Corpuscular Volume 94.5 fL (78.0-102.0); Mean Platelet Volume 10.9 fl (8.7-11.0); Platelet Count Result 207 K/mm3 (150-420); Red Blood Count 3.62 M/mm3 (4.70-6.10); Red Cell Distribution Width 13.3 % (11.6-14.4); White Blood Count 6.2 K/mm3 (4.8-10.8)
[2021-08-11 06:06] LABS: Device BIPAP; Modified Allen's Test Pass; Site Drawn LEFT RADIAL
[2021-08-11 06:07] LABS: Expiratory Pressure 6 cmH2O; Inspiratory Pressure 15 cmH2O
[2021-08-11 06:24] LABS: Alanine Aminotransferase 25 U/L (16-63); Albumin Level 2.6 g/dL (3.4-5.0); Alkaline Phosphatase 52 U/L (46-116); Anion Gap 10 mmol/L (8-16); Bilirubin,Total 0.7 mg/dL (0.00-1.00); Blood Urea Nitrogen 20 mg/dL (7-18); Carbon Dioxide 27 mmol/L (21-32); Chloride 101 mmol/L (98-108); Estimated CRCL calculation 107 ml/min; Estimated Glomerular Filt Rate > 60; Glucose 106 mg/dL (70-99); Osmolality Calculated 288 mOsm/kg (285-295); Potassium 3.7 mmol/L (3.5-5.1); Sodium 138 mmol/L (136-145); Total Protein 6.4 g/dL (6.4-8.2)
[2021-08-11 06:33] LABS: Aspartate Amino Transferase 17 U/L (15-37)
--- NOTE | 2021-08-11 08:23 | WPDPN ---
Progress Note: A&P Assessment and Plan (1) Drug overdose: Qualifiers: Encounter type: initial encounter Injury intent: undetermined intent Qualified Code(s): T50.904A - Poisoning by unspecified drugs, medicaments and biological substances, undetermined, initial encounter Code(s): T50.901A - Poisoning by unspecified drugs, medicaments and biological substances, accidental (unintentional), initial encounter Status: Acute Assessment and Plan: 2 IV doses of Narcan, Pt responded well and this lasted about 1.75 hours before the 2nd dose was given of 0.4 mg, started Narcan drip and Pt doing well. Considering infusing one 250 ml Narcan drip at 43 ml/hr (5mg/kg/hr) then monitor the Pt with either restart of Drip of use of PRN Narcan IV. Unsure what Pt ingested (see toxicology) it was reported that Pt was doing Meth (Pt admitted to this), Benzos (Pt admited to this), snorting some substance, and an IV needle was reported found near him. 08/10/2021 Pt remains lethargic, he required BiPAP currently settings are 15/6 with 5 L/min bleed in O2 with SpO2 mid to upper 90s, ABG at 1615 hours shows: pH 7.22, pCO2 68.7, pO2 86.4, HCO3 27.5, O2 Sat 96.5, Pt is back on the Narcan drip and to titrate for RR > 16, Vte is around 350 to 450 with a rate of 20+/- occasionally there is higher tidal volumes, set RR delivery is 24 pbm on the BiPAP, will obtain ABG in the AM. 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 Patient more alert oxygen level being titrated down (2) Depression: Code(s): F32.A - Depression, unspecified Status: Acute Assessment and Plan: Will hold his Lexapro (3) PNA (pneumonia): Code(s): J18.9 - Pneumonia, unspecified organism Status: Acute Assessment and Plan: Patient on cefdinir and Rocephin No blood culture ordered before antibiotic treatment Subjective Date/time seen: 08/11/21 08:23 patient is alert and orientated x4 today he will be titrated down to high flow > nasal cannula > he has no complaints at this time room air with instructions to keep sats above 92%. Benzo stabilizer protocol. He has no complaints at this time Review of Systems Review of Systems: A 14 organ system Review of Systems was performed and pertinent positives included in the HPI, otherwise remaining ROS is negative. Exam Narrative: GENERAL: This is a well-nourished, well-developed patient, in no apparent distress. HEAD: normocephalic, atraumatic. EYES: PERRL. Sclera clear/white. Vision is grossly intact. EARS: External ears normal, auditory canals clear and without drainage, TMs normal without perforation. Hearing grossly intact. NOSE: External nose normal with no obvious nasal discharge, nares without redness, no rhinorrhea. THROAT: Mucous membranes moist, posterior pharynx clear. NECK: Neck supple, non-tender without lymphadenopathy, masses or thyromegaly. CARDIOVASCULAR: Regular rate and rhythm without murmurs, gallops, or rubs. RESPIRATORY: Clear to auscultation. Breath sounds equal bilaterally. No wheezes, rales, or rhonchi. GASTROINTESTINAL: Abdomen soft, non-tender, nondistended. Bowel sounds are active. No hepato-splenomegaly, or palpable masses. No guarding. SKIN: warm, intact with no suspicious lesions or rash, good texture and turgor. NEURO: awake, alert, and oriented to person, place and time. There were no obvious focal neurologic abnormalities. Steady gait EXTREMITIES: Normal range of motion. No edema. No calf tenderness. Negative Homans sign bilaterally. BACK: Nontender without deformity or crepitance. No flank tenderness. Objective Data Vital Signs Vital Signs: Vital Signs - 24 hr 08/10/21 12:00 08/10/21 16:00 08/10/21 18:54 Temperature 97.0 F L 97.6 F Pulse Rate 86 92 91 Respiratory Rate 6 L 6 L 22 H Blood Pressure 126/78 142/83 H Pulse Oximetry 97 95 98
[2021-08-11 09:16] LABS: Base Excess ABG 1.2 mmol/L (0-2); HCO3 ABG 27.4 mmol/L (23-29); Oxygen Content ABG 17.5 %vol (16.0-22.0); Oxygen Saturation ABG 98.6 % (95-97); Oxyhemoglobin 98.1 % (94-100); PCO2 ABG 50.2 mmHg (35-45); PO2 ABG 157.4 mmHg (80-90); Total Hemoglobin 12.5 g/dL (12.0-18.0); pH ABG 7.36 (7.35-7.45)
[2021-08-11 09:17] LABS: Device HIGH FLOW NASAL CANN; Modified Allen's Test Pass; Site Drawn LEFT RADIAL
[2021-08-11] MEDS: GABAPENTIN 300 MG CAPSULE PO ×3 (09:40→17:51)
[2021-08-12] VITALS (7 sets, daily range): BP systolic 121–128; BP diastolic 62–99; PULSE 70–95; RESP 14–20; TEMP 36.4–36.6; O2SAT 89–95
[2021-08-12] MEDS: IPRATROPIUM 0.5 MG/ALBUTEROL SULFATE 2.5 MG AMPUL.NEB 3 ML INHALATION (05:44)
[2021-08-12 05:57] LABS: Hematocrit 37.1 % (40.0-54.0); Hemoglobin 11.6 g/dL (14.0-18.0); Mean Corpuscular HGB Conc 31.3 g/dL (32.0-36.0); Mean Corpuscular Hemoglobin 29.7 pg (27.0-31.0); Mean Corpuscular Volume 94.9 fL (78.0-102.0); Mean Platelet Volume 10.1 fl (8.7-11.0); Platelet Count Result 243 K/mm3 (150-420); Red Blood Count 3.91 M/mm3 (4.70-6.10); Red Cell Distribution Width 13.5 % (11.6-14.4); White Blood Count 6.8 K/mm3 (4.8-10.8)
[2021-08-12 06:09] LABS: Anion Gap 8 mmol/L (8-16); Blood Urea Nitrogen 16 mg/dL (7-18); Calcium 9.2 mg/dL (8.5-10.1); Carbon Dioxide 30 mmol/L (21-32); Chloride 101 mmol/L (98-108); Estimated CRCL calculation 113 ml/min; Estimated Glomerular Filt Rate > 60; Glucose 104 mg/dL (70-99); Osmolality Calculated 289 mOsm/kg (285-295); Potassium 3.8 mmol/L (3.5-5.1); Sodium 139 mmol/L (136-145)
[2021-08-12] MEDS: GABAPENTIN 300 MG CAPSULE PO (08:41)
--- NOTE | 2021-08-12 11:58 | PM.DS ---
DS: Admitting Diagnosis Discharge Date 08/12/2021 Admitting Diagnosis Drug overdose DS: Discharge Diagnosis Discharge Diagnosis (1) Drug overdose: Qualifiers: Encounter type: initial encounter Injury intent: undetermined intent Qualified Code(s): T50.904A - Poisoning by unspecified drugs, medicaments and biological substances, undetermined, initial encounter Code(s): T50.901A - Poisoning by unspecified drugs, medicaments and biological substances, accidental (unintentional), initial encounter Status: Acute Assessment and Plan: 2 IV doses of Narcan, Pt responded well and this lasted about 1.75 hours before the 2nd dose was given of 0.4 mg, started Narcan drip and Pt doing well. Considering infusing one 250 ml Narcan drip at 43 ml/hr (5mg/kg/hr) then monitor the Pt with either restart of Drip of use of PRN Narcan IV. Unsure what Pt ingested (see toxicology) it was reported that Pt was doing Meth (Pt admitted to this), Benzos (Pt admited to this), snorting some substance, and an IV needle was reported found near him. 08/10/2021 Pt remains lethargic, he required BiPAP currently settings are 15/6 with 5 L/min bleed in O2 with SpO2 mid to upper 90s, ABG at 1615 hours shows: pH 7.22, pCO2 68.7, pO2 86.4, HCO3 27.5, O2 Sat 96.5, Pt is back on the Narcan drip and to titrate for RR > 16, Vte is around 350 to 450 with a rate of 20+/- occasionally there is higher tidal volumes, set RR delivery is 24 pbm on the BiPAP, will obtain ABG in the AM. 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 Patient more alert oxygen level being titrated down Discharge Patient not requiring oxygen on room air satting in the mid upper 90s (2) Depression: Code(s): F32.A - Depression, unspecified Status: Acute Assessment and Plan: Will hold his Lexapro Discharged Continue home medication (3) PNA (pneumonia): Code(s): J18.9 - Pneumonia, unspecified organism Status: Acute Assessment and Plan: Patient on cefdinir and Rocephin No blood culture ordered before antibiotic treatment Discharge Will discontinue antibiotic not believed to be pneumonia DS: Summary Hospital Course Hospital Course: John Constantino is a 40 year young male who is being admitted into Observation for Drug Overdose. Toxicology shows low amount of EtOH, Amphetamines, and Benzodiazepines. This day of discharge patient is at his baseline. He does complain of body aches and a headache possibly withdrawal symptoms. Patient refuses any assistance with cessation of drug abuse. He was discharged home with Ativan to treat his withdrawal symptoms. He will need to follow-up with the treatment program or his primary care physician. The patient denies SOB, CP, palpitation, extremity numbness, lightheadedness, dizziness, constipation, diarrhea, chills, or fever. Patient is at baseline with his alertness. Time Spent with Patient Time attestation: Total time spent providing and/or coordinating discharge services:60 Exam Narrative: GENERAL: This is a well-nourished, well-developed patient, in no apparent distress. HEAD: normocephalic, atraumatic. EYES: PERRL. Sclera clear/white. Vision is grossly intact. EARS: External ears normal, auditory canals clear and without drainage, TMs normal without perforation. Hearing grossly intact. NOSE: External nose normal with no obvious nasal discharge, nares without redness, no rhinorrhea. THROAT: Mucous membranes moist, posterior pharynx clear. NECK: Neck supple, non-tender without lymphadenopathy, masses or thyromegaly. CARDIOVASCULAR: Regular rate and rhythm without murmurs, gallops, or rubs. RESPIRATORY: Clear to auscultation. Breath sounds equal bilaterally. No wheezes, rales, or rhonchi. GASTROINTESTINAL: Abdomen soft, non-tender, nondistended. Bowel sounds are active. No hepato-splenomegaly, or pa
--- NOTE | 2021-08-12 14:00 | PC.NURSE ---
Patient being discharged home. All discharge instructions and education reviewed with patient and patients mother. Both parties state understanding. IV site discontinued, dressing intact to site. Patient refused resources for Drug abuse, states he can get them from his primary care doctor. All belongings sent home with pt. Patient changed into clothing from home with no assist. Taken down to front door via wheelchair by this nurse, left via private vehicle with mother.
--- NOTE | 2021-08-14 11:23 | PC.NURSE ---
Unable to contact for discharge call back.
== END 2021-08-12 14:00 | disposition home or self-care (01) | DRG 812 ==
LOC: CHSED 08-09 06:22 → CHS2ND 08-09 06:33
PROVIDERS: Nurse Practitioner; Nurse Practitioner Family; Admitting Provider Emergency Medicine; Emergency Provider Emergency Medicine; PCP Physician Assistant; Visit Provider Emergency Medicine
DX: T50.904A Poisoning by unspecified drugs, medicaments and biological substances, undetermined, initial encounter (principal); F32.9 Major depressive disorder, single episode, unspecified; F15.99 Other stimulant use, unspecified with unspecified stimulant-induced disorder; E66.01 Morbid (severe) obesity due to excess calories; Z68.42 Body mass index [BMI] 45.0-49.9, adult
CPT/HCPCS: 36415; 36600; 70450; 71045; 71046; 80048; 80053; 80307; 81001; 82140; 82805; 83605; 83735; 83880; 84100; 85025; 85027; 87426; 93005; 94640; 94660; 96361; 96365; 96366; 96367; 96374; 96376; 99285; A9270; C9803; G0378; G0379; J0696; J2310; J7030; J7042; J7050

== ENCOUNTER 2021-09-02 10:11 | Outpatient (CLI) | payer BC, SELFPAY ==
[2021-09-02 11:22] LABS: SARS-CoV-2 RNA PCR Positive (Negative)
== END 2021-09-02 10:12 | disposition home or self-care (01) ==
LOC: CHSLAB 10:14
PROVIDERS: PCP Physician Assistant; Visit Provider Physician Assistant
DX: U07.1 COVID-19 (principal); B34.9 Viral infection, unspecified
CPT/HCPCS: C9803; U0003; U0005

== ENCOUNTER 2022-05-19 16:00 | Outpatient (RCR) | payer BC, SELFPAY ==
--- NOTE | 2022-05-19 18:28 | OTOPEVAL1 ---
Assessment and note entered by Araceli León OT Evaluation Information Assessment Status Evaluation Diagnosis Tennis elbow Onset 4 years ago Subjective Information The patient reports having a time where the pain stopped between jobs and the pain has returned within a month from now. Reported Pain Level Pain Score 5: Self Report Assessment OT Clinical Summary The patient is a 41 year old male who has been experiencing tennis elbow of R UE affecting his ability to perform work tasks. The patient presents with R UE pain in shoulder, lateral and medial elbow, posterior forearm and palm of hand. 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 The patient requires skilled OT to address current deficits in order to return patient to work with no pain. Plan of Care Interventions Therapeutic Exercise,Manual Therapy,Therapeutic Activities,Hot Pack/Cold Pack,Electrical Stimulation,Ultrasound OT Services Indicated Yes Treatment Frequency and 2x/week for 12 visits Duration These treatments will address the objective and functional deficits as defined above. The patient will be advanced safely and appropriately in order for the patient to progress towards his/her prior level of function. Additional exercises will be introduced and as well as a comprehensive home exercise program upon discharge, if needed, ?to ensure carryover of functional gains achieved in the clinic. This treatment plan has been reviewed and agreement upon by the patient.
== END 2022-05-19 16:32 | disposition home or self-care (01) ==
LOC: CHSOT 16:00
DX: M77.11 Lateral epicondylitis, right elbow (principal)
CPT/HCPCS: 97140; 97165

== ENCOUNTER 2022-08-27 18:16 | Emergency (ER) | payer BC, SELFPAY ==
--- NOTE | ~2022-08-27 | XR_ITS ---
EXAMINATION: XR hand RT min 3V DATE: 08/27/2022 18:33 INDICATION: Right hand swelling and pain. TECHNIQUE: 3 views of right hand were obtained. COMPARISON: None. FINDINGS: Bone alignment is normal. No fracture. There is mild osteoarthritis of second and third dis daisy interphalangeal joints. IMPRESSION: 1. Mild polyarticular osteoarthritis. Reviewed, dictated and finalized at location A. L [facility]
--- NOTE | 2022-08-27 18:23 | ED.UPPEXIN ---
HPI - Extremity Injury (Upper) General Chief Complaint: Extremity Injury, Upper Stated Complaint: Right Hand Injury Time Seen by Provider: 08/27/22 18:23 Source: patient, family and RN notes reviewed History of Present Illness HPI narrative: patient is 41-year-old male who presents to urgent care with complaints of swelling to the right hand. Patient denies any known injury to the hand. States that something may have hit and his hand at work. 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 No other acute complaints. Patient has been using Advil for the pain. No acute distress noted. Patient aware of the plan of care. Some parts of this dictation were generated by voice recognition software and may contain typographical and/or grammatical inaccuracies. Related Data Home Medications Medication Instructions Recorded Confirmed methylphenidate HCl 36 mg 36 mg PO DAILY 08/27/22 08/27/22 tablet,extended release 24 hr ([facility]) Allergies Allergy/AdvReac Type Severity Reaction Status Date / Time vancomycin Allergy Unknown Confusion Verified 08/27/22 18:40 Review of Systems Review of Systems: CONSTITUTIONAL: Denies fever, chills, or sweats. EYES: Denies visual changes, redness, or discharge. ENT: Denies rhinorrhea, congestion, sore throat, or otalgia. CARDIOVASCULAR: Denies chest pain, palpitations, or edema. RESPIRATORY: Denies cough or dyspnea. GASTROINTESTINAL: Denies abdominal pain, nausea, vomiting, or diarrhea. GENITOURINARY: Denies dysuria or hematuria. SKIN: Denies rash or itching. MUSCULOSKELETAL: Report of right hand pain and swelling NEUROLOGIC: Denies headache, numbness, or weakness. All other systems reviewed are negative, except as documented in HPI. [facility] Past Medical History Medical History Depression Drug overdose Social History Social History Smoking status: Never smoker Second hand tobacco smoke exposure: No Alcohol intake: current Substance use: current Substance use type: marijuana, amphetamines, sedatives and methamphetamine Spiritual care concerns: No Comments At the time of my signature, I reviewed and agree with the nursing past medical, surgical, social, and family history. There is no relevant family history pertinent to the patient complaint. Exam Narrative: GENERAL: This is a well-nourished, well-developed patient, in no apparent distress. HEAD: normocephalic, atraumatic. EYES: PERRL. Sclera clear/white. Vision is grossly intact. EARS: External ears normal NOSE: External nose normal with no obvious nasal discharge, nares without redness, no rhinorrhea. THROAT: Mucous membranes moist NECK: Neck supple SKIN: warm, intact with no suspicious lesions or rash, good texture and turgor. NEURO: awake, alert, and oriented to person, place and time. There were no obvious focal neurologic abnormalities. EXTREMITIES: moderate edema noted to the dorsal aspect of the right hand with increased pain find this. Has right radial pulse with capillary refill less than 2 seconds. Course Course Level of Care: Express Care Visit Vital Signs Vital signs: Vital Signs Temperature 98.3 F 08/27/22 18:33 Pulse Rate 90 08/27/22 18:33 Respiratory Rate 16 08/27/22 18:33 Blood Pressure 127/87 08/27/22 18:33 Pulse Oximetry 98 08/27/22 18:33 Temperature 98.3 F 08/27/22 18:33 Pulse Rate 90 08/27/22 18:33 Respiratory Rate 16 08/27/22 18:33 Blood Pressure 127/87 08/27/22 18:33 Pulse Oximetry 98 08/27/22 18:33 Reviewed MDM - Extremity Injury (Upper) MDM Narrative Medical decision making narrative: Reviewed x-ray results with the patient. He is aware that x-ray shows osteoarthritis which could be the cause of the swelling specially if you work at a job with repetitive hand motions. Advised the patient to c
[2022-08-27 18:33] VITALS: BP 127/87; PULSE 90; RESP 16; TEMP 36.8; O2SAT 98
== END 2022-08-27 18:50 | disposition home or self-care (01) ==
PROVIDERS: Emergency Provider Nurse Practitioner Family; PCP Physician Assistant
DX: M15.1 Heberden's nodes (with arthropathy) (principal)
CPT/HCPCS: 73130; 99213; G0463

== ENCOUNTER 2023-10-25 11:18 | Emergency (ER) | payer BC, MEDICAID, SELFPAY ==
[2023-10-25 11:30] VITALS: BP 137/88; PULSE 83; RESP 20; TEMP 37.1; O2SAT 98
--- NOTE | 2023-10-25 11:43 | ED.GENADULT ---
HPI - General Adult General Chief complaint: Upper Respiratory Infection Stated complaint: Headache/Body Aches/Sore Throat Source: patient, RN notes reviewed and old records reviewed Mode of arrival: ambulatory Limitations: no limitations History of Present Illness HPI narrative: 43-year-old male patient presents to [facility] with complaint of cough, congestion, sore throat, fever, chills, myalgia, fatigue, diarrhea, night sweats that started Wednesday. Patient taking [id number] medications with little relief. Patient denies chest pain, shortness of breath, dizziness, weakness. Related Data Home Medications Medication Instructions Recorded Confirmed methylphenidate HCl 36 mg 36 mg PO DAILY 08/27/22 10/25/23 tablet,extended release 24 hr ([facility]) testosterone cypionate 200 mg/mL See Rx Instructions .Route .COMPLEX 10/25/23 10/25/23 intramuscular oil Allergies Allergy/AdvReac Type Severity Reaction Status Date / Time vancomycin Allergy Unknown Confusion Verified 10/25/23 11:46 Review of Systems Constitutional: Constitutional: Reports no additional constitutional complaints, Reports body ache(s), Reports chills, Reports fatigue, Reports fever(s) and Denies headache(s) Eyes: Eyes: Reports no additional eye complaints and Denies blurry vision ENT: Reports system reviewed and no additional complaints, except as documented, Denies vertigo, Denies dizziness, Denies ear discharge, Denies otalgia, Denies facial pain, Denies headache(s), Reports nasal congestion, Reports nasal discharge, Denies sinus pain, Reports sinus pressure and Reports sore throat Cardiovascular: Cardiovascular: Reports no additional cardiovascular complaints, Denies chest pain, Denies chest pain at rest, Denies rapid heart rate and Denies dyspnea Respiratory: Respiratory: Reports no additional respiratory complaints, Reports chest congestion, Reports cough, Denies pain on inspiration, Denies pain with cough and Denies dyspnea Gastrointestinal: Gastrointestinal: Denies abdominal pain, Reports diarrhea, Denies nausea and Denies vomiting Integumentary/Breasts: Skin/Breast: Denies rash Neurologic: Reports system reviewed and no additional complaints, except as documented, Denies vertigo, Denies dizziness and Denies headache(s) Endocrine: Endocrine: Denies fatigue PMFSH Past Medical History Medical History Depression Drug overdose Social History Social History Smoking status: Never smoker Second hand tobacco smoke exposure: No Alcohol intake: current Substance use: current Substance use type: marijuana, amphetamines, sedatives and methamphetamine Spiritual care concerns: No Comments At the time of my signature, I reviewed and agree with the nursing past medical, surgical, social, and family history. There is no relevant family history pertinent to the patient complaint. Exam Const: General: cooperative, healthy appearing, no acute distress and well nourished Nutritional Appearance: well nourished Orientation/consciousness: patient oriented x3 Limitations: no limitations HENMT: Head: normal to inspection and normocephalic Ears: external ears normal, TM's normal bilaterally, EAC's normal and mastoids normal Face/Nose/Sinus: normal facial exam Face and sinus: normal facial exam Mouth: Yes Normal oral and palatal mucosa present, Yes oropharynx normal and Yes moist mucous membranes Throat: tonsils normal, uvula midline, normal tonsils, no peritonsillar masses, posterior oropharynx abnormal erythema, postnasal drainage and no uvular edema Eyes: General: appearance normal, both eyes and all related structures Sclera: sclerae normal Pupils: Equal, round and reactive pupils present Resp: Effort & Inspection: normal respiratory effort, able to speak in complete sentences, no audible wheezes, no cough, no respiratory
== END 2023-10-25 12:00 | disposition home or self-care (01) ==
PROVIDERS: Emergency Provider Registered Nurse; PCP Physician Assistant
DX: J10.1 Influenza due to other identified influenza virus with other respiratory manifestations (principal); Z20.822 Contact with and (suspected) exposure to COVID-19
CPT/HCPCS: 87426; 87804; 99213; G0463